=== PATIENT | male | born 1945 | race Caucasian/White ===

== ENCOUNTER → 2016-10-03 | Outpatient (CLI) | payer MEDICARE ==
--- NOTE | 2016-10-03 09:18 | US ---
EXAMINATION TYPE: US duplex aorta DATE OF EXAM: 10/03/2016 COMPARISON: NONE CLINICAL HISTORY: Z13.6 Screening for Cardiovascular disease. EXAM MEASUREMENTS: Abdominal Aorta: Proximal: 2.5cm Mid: AAA measuring 4.8 x 5.6 x 5.6cm Distal: 1.5 Bifurcation: 1.2cm 1.2cm AAA at measured above, atherosclerotic changes within. Report was called to Dr. Low by Dr. Bush by telephone at the time of interpretation. IMPRESSION: 1. Abdominal aortic aneurysm with an AP dimension of 4.8 cm. This appears to terminate above the bifu rcation. Consider additional evaluation with CTA of abdomen.
== END | disposition home or self-care (01) ==
LOC: RADUSWWP 06:48
PROVIDERS: ATTEND Internal Medicine
DX: Z13.6 Encounter for screening for cardiovascular disorders (principal); I71.4 Abdominal aortic aneurysm, without rupture
CPT/HCPCS: 93979